=== PATIENT | male | born 1970 | race Caucasian/White ===

== ENCOUNTER → 2016-11-09 | Day surgery (SDC) | payer BC ==
[~2016-11-09] VITALS: Ht 182.9 cm; Wt 109.2 kg
[~2016-11-09] MED LIST: *LABETALOL HCL 100 MG/20 ML VIAL PERIprocedural Use ONLY ONE; *morphine SULFATE 8 MG/ML PERIprocedure ONLY ONE; ACETAMINOPHEN 1000 MG/100 ML VIAL IV ONE; ACETAMINOPHEN 1000 MG/100 ML VIAL IV SCH; BUPIVACAINE/EPINEPHRINE 0.25% PF 30 ML VIAL INFIL ONE; BUPIVACAINE/EPINEPHRINE 0.25% PF 30 ML VIAL ONE; DEXAMETHASONE SOD PHOS 4 MG/ML VIAL ONE; DICLOFENAC SODIUM 37.5 MG/ML VIAL IV PUSH ONE; DO NOT ADM ANY ANTICOAGULANT DRUGS XX PRN; FAMOTIDINE 20 MG/2 ML VIAL ONE; HYDR-3533 PO; INSULIN HUMAN REGULAR 1,000 UNITS/10 ML VIAL SQ PRN; LACTATED RINGER'S 1000 ML IV SCH; LACTCAP8 PO; LISI-519 PO; METOPROLOL TARTRATE 25 MG TAB PO PRN; MIDAZOLAM HCL 2 MG/2 ML VIAL ONE; MORPHINE SULFATE 4 MG/ML INJ IV PRN; NEOSTIGMINE 3 MG/3 ML SYR IV ONE; ONDANSETRON HCL 4 MG/2 ML VIAL IV PRN; ONDANSETRON HCL 4 MG/2 ML VIAL IV PUSH ONE; PROPOFOL 200 MG/20 ML AMP IV ONE; PROT40TA PO; SODIUM CHLORID 0.9% 500 ML IV SCH; SODIUM CHLORIDE 5 ML FLUSH PRN IVF; SOMA350T PO; VITA100064 PO; [UNRECOGNIZED DRUG - OTHER]; ceFAZolin 2 GM PREMIX 50 ML ONE; fentaNYL CITRATE 250 MCG/5 ML AMP ONE; metroNIDAZOLE 500 MG INJ 100 ML IV ONE; oxyCODONE/ACETAMINOPHEN 5 MG/325 MG TAB PO PRN
[2016-11-09 05:59] VITALS: BP 145/84; PULSE 56; RESP 16; TEMP 97.8; O2SAT 97
[2016-11-09 09:46] VITALS: BP 137/68; PULSE 70; RESP 18; TEMP 97.6; O2SAT 100
--- NOTE | 2016-11-09 10:14 | MP ---
cc: YUE JACOBS DATE OF 1970 DATE OF OPERATION 11/09/2016 PREOPERATIVE DIAGNOSIS Dysfunctional gallbladder. POSTOPERATIVE DIAGNOSIS Dysfunctional gallbladder. PROCEDURE Laparoscopic cholecystectomy. SURGEON Yue Jacobs MD ANESTHESIA General endotracheal anesthesia. ESTIMATED BLOOD LOSS Scant. FINDINGS Distended gallbladder. SPECIMEN Gallbladder. COMPLICATIONS None. OPERATION The patient was brought to the operating room and placed on the operating table in a supine position. A bilateral sequential inflation device was placed on the lower extremities. General anesthesia was instituted, antibiotics initiated. The abdomen was prepped and draped sterilely. A point in the periumbilical region was anesthetized with 0.25% Marcaine with epinephrine. A skin incision was made. A 5 mm Optiview port was placed under direct vision, a pneumoperitoneum created. Under direct vision a 12 mm subxiphoid and two 5 mm right upper quadrant ports were placed. Prior to placement of all ports the skin and peritoneum were anesthetized with 0.25% Marcaine with epinephrine. The patient was placed in reverse Trendelenburg position, right side up. The gallbladder was retracted into the upper abdomen. The infundibulum was retracted. Calot's triangle was opened. The hepatoduodenal ligament was incised. The cystic artery was identified. It was circumferentially dissected with the Harmonic scalpel and then divided with the Harmonic scalpel. The cystic duct was identified, circumferentially dissected ligated with hemoclips and divided with the Harmonic scalpel. The gallbladder was removed from the liver bed using the Harmonic scalpel. It was retrieved from the peritoneal cavity in an Endopouch through the 12 mm port site. The operative site was inspected. Hemostasis was present. There was no evidence of bile leak. CO2 was released. All ports were removed. All skin incisions were closed with 4-0 Monocryl. The abdominal wall was cleaned and a sterile dressing placed. The patient was awakened and taken to the recovery room. MD DENNISE Goldman/SUZETTE /8:05 AM /10:12 AM [facility]
== END | disposition home or self-care (01) ==
LOC: HSDC 05:32
PROVIDERS: ATTEND Surgery
DX: K81.1 Chronic cholecystitis (principal); I10 Essential (primary) hypertension
CPT/HCPCS: 00790; 47562; 88304; J0131; J0690; J1100; J2250; J2270; J2405; J2710; J3010; J7120; J1130